=== PATIENT | female | born 1970 | race Caucasian/White ===

== ENCOUNTER → 2020-10-13 | Outpatient (CLI) | payer BC | LOC: COL.RAD 13:17 | DX: Z90.710 Acquired absence of both cervix and uterus (principal); N83.209 Unspecified ovarian cyst, unspecified side; Z90.722 Acquired absence of ovaries, bilateral ==

== ENCOUNTER → 2021-10-18 | Outpatient (CLI) | payer BC | LOC: MC.RAD 08-30 16:30 | DX: Z12.31 Encounter for screening mammogram for malignant neoplasm of breast (principal) ==